=== PATIENT | female | born 1985 | race Caucasian/White ===

== ENCOUNTER 2023-03-19 23:04 | Emergency (ER) | payer MEDICAID ==
[~2023-03-19] VITALS: Ht 165.1 cm; Wt 99.8 kg
--- NOTE | 2023-03-20 00:01 | NUR ---
BIBSELF FROM HOME C/O SOB X3 DAYS. DX PNA FROM [facility] & [facility] 03/18. VITALS TAKEN. CONNECTED TO MONITOR
--- NOTE | 2023-03-20 00:13 | NUR ---
CALLED RT FOR BREATHING TX AND ABG
[2023-03-20] MEDS ORDERED: methylPREDNISolone SOD SUCC 125 MG/2ML VIAL ONE (00:14)
[2023-03-20] MEDS ORDERED: ALBUTEROL FS 2.5 MG/3 ML VIAL.NEB ONE (00:18)
[2023-03-20] MEDS ORDERED: IPRATROPIUM NEB FS 0.5 MG/2.5 ML AMPUL.NEB ONE (00:18)
--- NOTE | 2023-03-20 00:27 | NUR ---
IV SYMONE G20 INSERTED ON RIGHT AC. IVF STARTED
--- NOTE | 2023-03-20 00:28 | NUR ---
RT AT BEDSIDE WITH TREATMENT AND ABG BLOOD DRAW.
[2023-03-20] MEDS ORDERED: ALBUTEROL FS 2.5 MG/3 ML VIAL.NEB CONTNEB ONE (00:30)
[2023-03-20] MEDS ORDERED: IPRATROPIUM NEB FS 0.5 MG/2.5 ML AMPUL.NEB NEB ONE (00:30)
[2023-03-20] MEDS ORDERED: IV NS 0.9% 1,000 ML BAG IV ONE (00:30)
[2023-03-20] MEDS ORDERED: methylPREDNISolone SOD SUCC 125 MG/2ML VIAL IV ONE (00:30)
[2023-03-20 00:34] LABS: ABG BASE EXCESS -1.5 mmol/L; ABG PH 7.423 (7.350-7.450); ABG PO2 73.9 mmHg (75.0-100.0); COHb 1.1 % (0.5-1.5); MetHb 0.4 % (0.0-1.5); O2Hb 93.4 % (94.0-97.0); SITE, ABG Left Radial; VENT MODE, BG RA
[2023-03-20 00:56] LABS: BASOPHILS # (AUTO) 0.1 K/uL (0.0-0.2); BASOPHILS % (AUTO) 0.7 % (0.0-2.0); EOSINOPHILS % (AUTO) 2.1 % (0.0-6.0); HEMATOCRIT 34 % (33-45); HEMOGLOBIN 11.1 g/dL (11.5-14.8); LYMPHOCYTES % (AUTO) 10.6 % (20.0-44.0); MEAN CORPUSCULAR HGB CONC 32 g/dl (31.0-36.0); MEAN CORPUSCULAR VOLUME 85 fL (82-100); MONOCYTES # (AUTO) 0.8 K/uL (0.1-1.30); MONOCYTES % (AUTO) 4.5 % (2.0-12.0); NEUTROPHILS # (AUTO) 15.2 K/uL (1.8-8.9); NEUTROPHILS % (AUTO) 82.1 % (43.0-81.0); PLATELET COUNT (AUTO) 253 K/uL (150-450); RED BLOOD CELL COUNT(AUTO) 4.07 MIL/uL (4.0-5.2); WHITE BLOOD COUNT (AUTO) 18.6 K/uL (4.3-11.0)
--- NOTE | 2023-03-20 01:16 | NUR ---
CRITICAL LABS LACTIC 2.1
--- NOTE | 2023-03-20 01:17 | NUR ---
LACTIC ACID - 2.1 DR BARTHOLOMEW MADE AWARE
[2023-03-20 01:21] LABS: ALANINE AMINOTRANSFERASE 35 U/L (12-78); ALBUMIN 2.1 g/dL (3.4-5.0); ALKALINE PHOSPHATASE 105 U/L (46-116); ASPARTATE AMINOTRANSFERASE 18 U/L (15-37); BILIRUBIN,DIRECT 0.2 mg/dL (0.0-0.2); BILIRUBIN,TOTAL 0.3 mg/dL (0.2-1.0); CALCIUM, SERUM 8.3 mg/dL (8.5-10.1); CARBON DIOXIDE 27 mmol/L (21-32); CHLORIDE 105 mmol/L (98-107); CREATININE 0.8 mg/dL (0.6-1.3); GLUCOSE 152 mg/dL (74-106); POTASSIUM 3.3 mmol/L (3.5-5.1); SODIUM SERUM 141 mmol/L (136-145); UREA NITROGEN, BLOOD 29 mg/dL (7-18)
--- NOTE | 2023-03-20 01:29 | NUR ---
URINE SPECIMEN SENT TO LAB
[2023-03-20] MEDS ORDERED: CEFTRIAXONE 1GM BAG (ER ONLY) 1 GM/50 ML PIGGYBACK IV ONE (01:30)
[2023-03-20] MEDS ORDERED: AZITHROMYCIN 500 MG in IV D5W 250 ML IV ONE (01:30)
[2023-03-20] MEDS ORDERED: CEFTRIAXONE 1 G VIAL ONE (01:32)
--- NOTE | 2023-03-20 01:32 | NUR ---
RECEIVED CRITICAL RESULT FROM COREY FROM LAB. PT PRO CALCITONIN 11.8. DR BARTHOLOMEW MADE AWARE
[2023-03-20] MEDS ORDERED: AZITHROMYCIN 500 MG VIAL ONE (01:33)
[2023-03-20 01:42] LABS: BILIRUBIN,URINE 1+ (NEGATIVE); COLOR,URINE YELLOW (YELLOW); LEUKOCYTE ESTERASE ,URINE NEGATIVE (NEGATIVE); NITRITE, URINE NEGATIVE (NEGATIVE); PROTEIN,URINE 1+ mg/dl (NEGATIVE); UGLUCOSE NEGATIVE (NEGATIVE)
[2023-03-20 01:52] LABS: D-DIMER 3.45 mg/L(FEU (0.17-0.50)
[2023-03-20 02:26] LABS: BACTERIA,URINE None seen /HPF (None Seen); MUCUS,URINE Few /LPF (None Seen); RBC,URINE NONE SEEN /HPF (0-2); WBC,URINE 0-2 /HPF (0-3)
--- NOTE | 2023-03-20 03:25 | NUR ---
PATIENT HAS REPEAT LACTATE ACID REFLEX. SHE REFUSED TO HAVE HER BLOOD DRAWN AND BECAME VERBALLY ABUSIVE TO QC SCIENTIST. INTRUSION ANALYST EXPLAINED TO HER THE IMPORTANCE OF THE REPEAT LACTIC ACID BECAUSE HER PREVIOUS IS IN CRITICAL RESULT. PATIENT WAS INSULTING THE NURSE AND CALLING HIM NAMES. MADE AWARE
--- NOTE | 2023-03-20 03:50 | NUR ---
PATIENT WAS SO UPSET AND ASKED JOB ANALYST TO REMOVE HER IV ACCESS. RN EXPLAINED TO HER THAT THE IV ACCESS IS IMPORTANT FOR FLUID REPLENISH AND IV ANTIBIOTICS. PT STILL INSISTED TO HAVE IT REMOVED.
--- NOTE | 2023-03-20 03:52 | NUR ---
ETL APPLICATION DEVELOPER REMOVED THE IV SYMONE. CN AWARE.
--- NOTE | 2023-03-20 04:21 | NUR ---
PT WAS NOT IN BED AND RESTROOMS. STAFF CHECKED EVERY CUBICLE OF ER BUT SHE IS NOWHERE TO BE FOUND. CRAYON PAINTER MADE AWARE, MADE AWARE, CN MADE AWARE.
--- NOTE | 2023-03-20 04:26 | NUR ---
ANUP AMBROSE. CN AND MD AND RN MERCHANDISE FLOW ASSOCIATE MADE AWARE.
[2023-03-20 04:48] VITALS: BP 128/63
== END 2023-03-20 04:49 | disposition left against medical advice (07) ==
LOC: ER 23:05
DX: A41.9 Sepsis, unspecified organism (principal); J18.9 Pneumonia, unspecified organism; J45.909 Unspecified asthma, uncomplicated; E66.9 Obesity, unspecified; Z68.36 Body mass index [BMI] 36.0-36.9, adult; Z88.5 Allergy status to narcotic agent; Z20.822 Contact with and (suspected) exposure to COVID-19
CPT/HCPCS: 99291; 96365; 71045; 96375; 96361; 87426; 93005 ×2; 82803; 84145; 85025; 80048; 83605; 80076; 85378; 81001; 36415; 84484; 85730; 87081; 83880; 36600 ×2; 94640; 87040 ×2; J0696; J2930; J0456; C9803